=== PATIENT | female | born 1970 | race Caucasian/White ===

== ENCOUNTER → 2023-12-03 14:33 | Outpatient (REF) | payer OTHER, SELFPAY | LOC: HWWDC 14:33 | PROVIDERS: ATTENDING PHYSICIAN Nurse Practitioner Adult Health | DX: Z12.31 Encounter for screening mammogram for malignant neoplasm of breast (principal) | CPT/HCPCS: 77063; 77067 ==

== ENCOUNTER 2024-09-08 08:16 | Emergency (ER) | payer OTHER, SELFPAY ==
[2024-09-08 08:22] VITALS: BP 136/101
--- NOTE | 2024-09-08 09:08 | ED.GENMED ---
History of Present Illness
General
Chief Complaint: DVT/Possible Blood Clot
Source: patient
Exam Limitations: none
Time Seen by Provider: 09/08/24 08:59
History of Present Illness
History of Present Illness:
53-year-old female presents complaining of swelling and some tingling in the left calf. She is concerned about DVT. She has a history remotely of MCL reconstruction of the left knee. She was playing soccer 2 weeks ago maybe has tweaked her knee
and noted swelling about the knee. Today she noticed that her calf was swollen. No chest pain or shortness of breath. She does have a remote history of sick sinus syndrome requiring pacemaker. She is not anticoagulated. No recent travel or
surgery otherwise. No other complaints at this time
Past History
Past History
ED Past Medical History: Arrthythmia, Asthma, Psychiatric and Other (po TS, migraines)
ED Past Surgical History: Cardiac and Tonsilectomy
Social History
Tobacco: Non-smoker
Alcohol: None
Drug: None
Personal:
Living: with family
Employment: Employed
Phy Exam
Physical Exam
Physical Exam:
General: Well-appearing female no acute respiratory distress
HEENT: Normocephalic atraumatic
Musculoskeletal exam: Left knee without obvious effusion there is a subtle amount of fullness in the popliteal space. The knee is stable to ligament exam
Extremities: Mild pitting edema left lower extremity and swelling of the calf. To the right
Vascular: 2+ dp pulse
Course
Orders/Labs/Results
Orders:
Orders
09/08/24 09:07
Venous Doppler Lwr Ext Left [US Periph Venous LOWER Ext LT] Urgent
Comment:
Reason For Exam: swelling
Vital Signs
Initial and Last Documented VS:
Initial Vital Signs
Pulse Resp BP Pulse Ox
101 16 136/101 98
09/08/24 08:22 09/08/24 08:22 09/08/24 08:22 09/08/24 08:22
Last Documented Vital Signs
Pulse Resp BP Pulse Ox
101 16 136/101 98
09/08/24 08:22 09/08/24 08:22 09/08/24 08:22 09/08/24 08:22
MDM/Problems Addressed
Differential Diagnosis Includes:
Edema left leg relatively atraumatic. Consider DVT versus dependent edema from knee swelling. No sign of cellulitis. Ultrasound pending.
*Critical Care Note
Total Time (30-74mins, 75-104mins- exclusive of procedures): Not Applicable
Update Note
Update Note:
Venous ultrasound negative for DVT. Patient reassured I suspect dependent edema likely from knee injury. Recommended elevation and anti-inflammatories. Stable for discharge
ED Attending Note
-
Portions of this chart may have been created with voice recognition software.� Occasional wrong word or��sound alike� substitutions may have occurred due to the inherent limitations of voice recognition software.
Discharge Plan
Departure
Patient Disposition: Home (Routine Discharge)
Date of Disposition: 09/08/24
Time of Disposition: 10:12
Patient with high blood pressure during this ER visit?: No
Discharge Problem:
Leg swelling
Instructions: Edmonds's Cyst (DC)
Prescriptions:
No Action
desipramine 25 MG tablet
25 mg PO DAILY
montelukast 10 MG tablet
10 mg PO DAILY
duloxetine 60 MG capsule,delayed release(DR/EC)
60 mg PO DAILY
magnesium oxide [MagOx] 400 MG tablet
1 tab PO DAILY
vit [id number]-[id number]-wzl D3-calc cit-Zn 1 EACH capsule
1 cap PO DAILY
tklB-M4-P-B-oryyyg-tlfhbdd-min 1 TAB.SA tablet extended release
1 tab PO DAILY
albuterol sulfate 1 PUFF HFA aerosol inhaler
2 puff inhalation R Q4HPRN PRN (Reason: sob)
clindamycin HCl 300 MG capsule
300 mg PO QID Qty: 28 0RF
methylprednisolone [Medrol (Syed)] 4 MG tablets,dose pack
4 tab PO . DIRECT Qty: 1 0RF
Referrals:
Yolanda Henson CRNP [Family Provider] -
Activity Restrictions/Additional Instructions:
Elevate leg for swelling. You may use Tylenol or ibuprofen if needed for pain. Return if worse otherwise follow-up with your doctor
Interventions
Interventions:
*Risk Screen - Suicide Last Done: 09/08/24 08:22
*Neglect/Abuse Screening Last Done: 09/08/24 08:22
ED- Cardiac Assessment Last Done: 09/08/24 09:19
ED- Pulmonary Assessment Last Done: 09/08/24 09:19
ED-Peripheral Vascular Assessment Last Done: 09/08/24 09:19
ED-Skin Assessment Last Done: 09/08/24 09:19
Discharge Date and Time
Print Language: SLOVENIAN
[2024-09-08 09:22] VITALS: BMI 24.2
--- NOTE | 2024-09-08 10:45 | EDRN ---
Reviewed discharge instructions with patient. Verbalized understanding. Ambulated with steady gait to the lobby.
[2024-09-08 11:32] VITALS: BP 122/86
== END 2024-09-08 10:50 | disposition home or self-care (01) ==
LOC: EMR 08:16
PROVIDERS: EMERGENCY PHYSICIAN Emergency Medicine; FAMILY PHYSICIAN Nurse Practitioner Adult Health
DX: R22.42 Localized swelling, mass and lump, left lower limb (principal); J45.909 Unspecified asthma, uncomplicated; Z95.0 Presence of cardiac pacemaker
CPT/HCPCS: 99284; 93971

== ENCOUNTER → 2025-03-30 07:45 | Outpatient (REF) | payer OTHER, SELFPAY | LOC: HWRAD 07:45 | PROVIDERS: ATTENDING PHYSICIAN Nurse Practitioner Adult Health | DX: E04.1 Nontoxic single thyroid nodule (principal) | CPT/HCPCS: 76536 ==

== ENCOUNTER → 2025-05-11 10:30 | Outpatient (REF) | payer OTHER, SELFPAY | LOC: HWWDC 10:30 | PROVIDERS: ATTENDING PHYSICIAN Nurse Practitioner Adult Health | DX: Z12.31 Encounter for screening mammogram for malignant neoplasm of breast (principal); E04.1 Nontoxic single thyroid nodule | CPT/HCPCS: 77063; 77067 ==